=== PATIENT | female | born 1950 | race African-American/Black ===

== ENCOUNTER → 2017-05-30 | Outpatient (CLI) | payer MEDICARE, OTHER ==
--- NOTE | 2017-05-30 12:02 | RADIOLOGY REPORT (SQ) ---
EXAM DESCRIPTION: KNEE RIGHT 4 VIEWS COMPLETED DATE/TIME: 05/30/2017 11:20 am REASON FOR STUDY: PAIN IN RIGHT KNEE M25.561 PAIN IN RIGHT KNEE COMPARISON: None. NUMBER OF VIEWS: Four views. TECHNIQUE: AP, lateral, and both oblique radiographic images acquired of the right knee. LIMITATIONS: None. FINDINGS: MINERALIZATION: Normal. BONES: No acute fracture or dislocation. No worrisome bone lesions. JOINT: There is a small joint effusion. There is a tiny posterior superior spur on the patella. SOFT TISSUES: No soft tissue swelling. No radio-opaque foreign body. OTHER: No other significant finding. IMPRESSION: Minimal patellofemoral degenerative joint changes. There is a small joint effusion. TECHNICAL DOCUMENTATION: JOB ID: [id number] [employer]- All Rights Reserved
== END ==
LOC: OD 10:56
PROVIDERS: ATTEND Internal Medicine
DX: M25.561 Pain in right knee (principal); M25.461 Effusion, right knee

== ENCOUNTER 2018-03-29 21:30 | Emergency (ER) | payer MEDICARE, OTHER ==
[2018-03-29] MEDS ORDERED: ACETAMINOPHEN 325 MG TABLET PO ONE (22:08)
--- NOTE | 2018-03-29 23:09 | RADIOLOGY REPORT (SQ) ---
EXAM DESCRIPTION: FOOT LEFT COMPLETE COMPLETED DATE/TIME: 03/29/2018 10:53 pm REASON FOR STUDY: swelling and pain COMPARISON: None. NUMBER OF VIEWS: Three views. TECHNIQUE: AP, lateral and oblique radiographic images acquired of the left foot. LIMITATIONS: None. FINDINGS: MINERALIZATION: Normal. BONES: No acute fracture or dislocation. No worrisome bone lesions. JOINTS: No effusions. SOFT TISSUES: No significant soft tissue swelling. No foreign body. OTHER: No other significant finding. IMPRESSION: No fracture. TECHNICAL DOCUMENTATION: JOB ID: [id number] [place]-72 2010 [employer]- All Rights Reserved Reading location - IP/workstation name: [email or web address]
--- NOTE | 2018-03-29 23:11 | RADIOLOGY REPORT (SQ) ---
EXAM DESCRIPTION: ANKLE LEFT COMPLETE COMPLETED DATE/TIME: 03/29/2018 10:53 pm REASON FOR STUDY: swelling and pain COMPARISON: None. NUMBER OF VIEWS: Three views. TECHNIQUE: AP, lateral, and oblique radiographic images acquired of the left ankle. LIMITATIONS: None. FINDINGS: MINERALIZATION: Normal. BONES: No acute fracture or dislocation. No worrisome bone lesions. JOINTS: No effusions. SOFT TISSUES: No soft tissue swelling. No foreign body. OTHER: No other significant finding. IMPRESSION: NO RADIOGRAPHIC EVIDENCE OF ACUTE INJURY. TECHNICAL DOCUMENTATION: JOB ID: [id number] [id number] 2010 [employer]- All Rights Reserved Reading location - IP/workstation name: [email or web address]
[2018-03-30] MEDS ORDERED: OXYCODONE HCL IR 5 MG TABLET PO ONE (01:27)
[2018-03-30] MEDS ORDERED: IBUPROFEN 600 MG TABLET PO ONE (01:27)
--- NOTE | 2018-03-30 01:33 | ER Document Report ---
ED Extremity Problem, Lower - General Chief Complaint: Foot Injury Stated Complaint: ANKLE INJURY Time Seen by Provider: 03/30/18 01:16 Mode of Arrival: Ambulatory Information source: Patient TRAVEL OUTSIDE OF THE [place] IN LAST 30 DAYS: No - HPI Patient complains to provider of: Pain, Swelling Location: Foot Notes: Patient is here with complaints of left foot pain. The patient has a history of gout, she states it has been about 3 years since she has had a gout flareup. Last week she states she had a "gout flareup "to left foot seem to get somewhat better and then today it seemed to get worse. No fever. No traumatic injury. No fall. No numbness, tingling, weakness. No nausea, vomiting, diarrhea. No chest pain or shortness of breath. No rash. No other complaints at this time. - Related Data Allergies/Adverse Reactions: iodine [Iodine] Adverse Reaction (Mild, Verified 02/24/16 09:29) Generalized Itching, Blisters, redness at site Past Medical History - Social History Smoking Status: Unknown if Ever Smoked Family History: Reviewed & Not Pertinent - Past Medical History Cardiac Medical History: Reports: Hx Hypertension Denies: Hx Coronary Artery Disease, Hx Heart Attack Pulmonary Medical History: Reports: Hx Asthma - USES INHALER PRN, no sob Denies: Hx Bronchitis, Hx COPD, Hx Pneumonia Neurological Medical History: Denies: Hx Cerebrovascular Accident, Hx Seizures GI Medical History: Denies: Hx Hepatitis, Hx Hiatal Hernia, Hx Ulcer Musculoskeltal Medical History: Denies Hx Arthritis Infectious Medical History: Denies: Hx Hepatitis Past Surgical History: Reports: Hx Section, Hx Hysterectomy, Hx Orthopedic Surgery - carpal tunnel. Denies: Hx Mastectomy, Hx Open Heart Surgery, Hx Pacemaker - Immunizations Hx Diphtheria, Pertussis, Tetanus Vaccination: No Review of Systems - Review of Systems -: Yes All other systems reviewed and negative Physical Exam - Vital signs Vitals: Temp Pulse Resp BP Pulse Ox 99.3 F 80 20 116/72 96 03/29/18 22:37 03/29/18 22:37 03/29/18 22:37 03/29/18 22:37 03/29/18 22:37 - Notes Notes: GENERAL: alert, cooperative, nontoxic, no distress. HEAD: normocephalic, atraumatic EYES: conjunctiva pink without discharge, no external redness or swelling. EARS: no external swelling, no external redness NOSE: atraumatic, no external swelling MOUTH/THROAT: mucous membranes moist and pink NECK: soft, supple, full range of motion, no meningismus. CHEST: no distress, lungs clear and equal throughout. No wheezing, rales, rhonchi. CARDIAC: regular rate and rhythm, no murmur, normal capillary refill, normal pulses. BACK: full range of motion, no CVA tenderness. EXTREMITIES: Patient is noted to have some swelling and tenderness at the first MTP joint with some mild redness and slight increased warmth to touch. This is consistent with gout. Normal cap refill and sensation. Normal pulse. Mild tenderness to palpation to the left medial ankle as well. There is mild swelling noted in this area, no significant redness or hot to touch. Achilles is intact with a normal Barron's test. No proximal tib-fib tenderness. NEURO: alert and oriented 3, no focal deficits, full range of motion of all extremities. PYSCH: appropriate mood, affect. Patient is cooperative. SKIN: pink, warm, dry, no rash. Course - Re-evaluation Re-evalutation: 03/30/18 01:32 Patient is nontoxic appearing with stable vitals. She is here with complaints of left foot pain. She has a history of gout. She states that she had a gout flareup earlier in the week and then things seem to get better until today. She now has pain swelling and redness to the first MTP joint of the left foot as well as the medial ankle. This exam is consistent with gout. Especially with her history of gout. She is afebrile. No signs of infection. Patient states she has normal functioning kidneys. No history of bleeding ulcers. X- rays of the left foot and ankle show no acute abnormal per the radiologist. Patient will be given ibuprofen and oxycodone here in emergency department. I will discharge her home on indomethacin as well as Calera. She is instructed to follow-up if not improving in the next 3-5 days, sooner for increasing pain, fever, increasing redness, or for any further concerns. The patient's emergency department workup and current diagnosis were explained to the patient and or family. Follow-up instructions were provided. Medications if prescribed were discussed. Instructions for when to return to the emergency department including specific worrisome symptoms were discussed with the patient and/or family. - Vital Signs Vital signs: Temp Pulse Resp BP Pulse Ox 99.3 F 80 20 116/72 96 03/29/18 22:37 03/29/18 22:37 03/29/18 22:37 03/29/18 22:37 03/29/18 22:37 - Diagnostic Test Radiology reviewed: Image reviewed - Left foot and ankle negative, Reports reviewed Discharge - Discharge Clinical Impression: Gout Qualifiers: Gout site: foot Gout etiology: unspecified cause Chronicity: acute Laterality: left Qualified Code(s): M10.9 - Gout, unspecified Condition: Stable Disposition: HOME, SELF-CARE Instructions: Gout ([facility]), Gout Diet ([facility]) Additional Instructions: Take medications as prescribed. Apply ice to sore area. Follow-up with your doctor if not improving in the next 3-5 days, sooner for worsening pain, fever, worsening redness, persistent vomiting, or for any further concerns. Prescriptions: Hydrocodone/Acetaminophen [Calera 5-325 mg Tablet] 2 tab PO Q6H PRN #15 tab PRN Reason: Indomethacin [Indocin 50 mg Capsule] 50 mg PO TID PRN #30 capsule PRN Reason: Referrals: [facility] [Provider Group] - Follow up as needed
[2018-03-30 02:27] VITALS: BP 136/65
== END 2018-03-30 02:18 | disposition home or self-care (01) ==
LOC: ER 21:30
DX: M10.9 Gout, unspecified (principal); M79.672 Pain in left foot; M79.89 Other specified soft tissue disorders; I10 Essential (primary) hypertension; J45.909 Unspecified asthma, uncomplicated
CPT/HCPCS: 99283; 73610; 73630; A9270 ×3

== ENCOUNTER → 2018-06-06 | Outpatient (CLI) | payer MEDICARE, OTHER ==
--- NOTE | 2018-06-07 09:25 | RADIOLOGY REPORT (SQ) ---
EXAM DESCRIPTION: NM THYROID SCAN AND UPTAKE COMPLETED DATE/TIME: 06/07/2018 9:14 am REASON FOR STUDY: THYROTOXICOSIS (E05.90) E05.90 THYROTOXICOSIS, UNSP WITHOUT THYROTOXIC CRISIS OR STO COMPARISON: None. RADIONUCLIDE AND DOSE: 299 microcuries iodine 123. The route of agent administration: Oral and Intravenous ADDITIONAL DRUGS AND DOSES: None. TECHNIQUE: Iodine uptake was measured at 4 and 24 hours. Images of the neck were acquired. LIMITATIONS: None. FINDINGS: 4 HOUR UPTAKE RADIO-IODINE: 14%. Normal Range of 5-15% [facility] 24 HOUR UPTAKE RADIO-IODINE: 39%. Normal Range of 15-30% [facility] SCAN: Homogeneous uptake of the radionuclide throughout both lobes of the gland and isthmus without a reas of increased or decreased activity. Normal size. OTHER: No other significant finding. IMPRESSION: Increased uptake of iodine at 24 hours. No hyperfunctioning thyroid nodule is identified. NORMAL UPTAKE OF IODINE. TECHNICAL DOCUMENTATION: JOB ID: [id number] [employer]- All Rights Reserved Reading location - IP/workstation name: [email or web address]
== END ==
LOC: RAD 08:38
PROVIDERS: ATTEND Internal Medicine
DX: E05.90 Thyrotoxicosis, unspecified without thyrotoxic crisis or storm (principal)
CPT/HCPCS: 78014; A9516

== ENCOUNTER → 2018-12-25 | Outpatient (CLI) | payer MEDICARE, OTHER ==
--- NOTE | 2018-12-25 10:35 | WOMENS IMAGING REPORT ---
EXAM DESCRIPTION: 3D SCREENING MAMMO BILAT COMPLETED DATE/TIME: 12/25/2018 8:01 am REASON FOR STUDY: Z12.31 SCREENING MAMMO Z12.31 ENCNTR SCREEN MAMMOGRAM FOR MALIGNANT NEOPLASM OF B RE COMPARISON: 2010, 2011, 2013 TECHNIQUE: Standard craniocaudal and mediolateral oblique views of each breast recorded using digita l acquisition and breast tomosynthesis. LIMITATIONS: None. FINDINGS: No masses, calcifications or architectural distortion. No areas of suspicion. Read with the assistance of CAD. .[facility] R2 Cenova Version 1.3 .[facility] - R2 Cenova Version 1.3 .[facility] - R2 Cenova Version 2.4 .[facility] - R2 Cenova Version 2.4 .[facility] - R2 Bill Collector Version 9.2 IMPRESSION: NORMAL MAMMOGRAM. BIRADS 1. BREAST DENSITY: b. There are scattered areas of fibroglandular density. BIRAD: 1 NEGATIVE RECOMMENDATION: ROUTINE SCREENING COMMENT: The patient has been notified of the results by letter per SA requirements. Additional no tification policies are in place for contacting patient with suspicious or incomplete findings. Quality ID #[id number]: The [employer] recommends an annual screening mammogram for women aged 40 years or over. This facility utilizes a reminder system to ensure that all patients receive reminder letters, and/or direct phone calls for appointments. This includes reminders for routine scr eening mammograms, diagnostic mammograms, or other Breast Imaging Interventions when appropriate. Th is patient will be placed in the appropriate reminder system. The [employer] (ACR) has developed recommendations for screening MRI of the breast s in certain patient populations, to be used in conjunction with mammography. Breast MRI surveillanc e may be appropriate for women with more than 20% lifetime risk of developing breast cancer as deter mined by genetic testing, significant family history of the disease, or history of mantle radiation f or Hodgkins Disease. ACR Practice Guidelines 2008. DBT Technology DBT is a type of tomographic mammography. With conventional mammography, overlapping breast tissue ma y make lesions difficult to detect, even with good compression. DBT uses an x-ray tube that rotates a round the breast, taking images at different angles. These images are then combined to create thin sl ices of the breast that the radiologist can view as a 3D reconstruction. The [employer] unit can perform full-field digital mammograms (2D imaging); or DBT (3D imaging); or both, in a combination mode that quickly performs both the mammogram and the tomosynthesis scan while the breast is still compressed. PQRS 6045F: Fluoroscopic imaging is not utilized for breast tomosynthesis. TECHNICAL DOCUMENTATION: FINDING NUMBER: (1) ASSESSMENT: (1) JOB ID: [id number] [employer])- All Rights Reserved Reading location - IP/workstation name: [email or web address]-
== END ==
LOC: WI 07:35
PROVIDERS: ATTEND Internal Medicine
DX: Z12.31 Encounter for screening mammogram for malignant neoplasm of breast (principal)
CPT/HCPCS: 77063; 77067

== ENCOUNTER 2020-05-13 22:09 | Emergency (ER) | payer MEDICARE, OTHER ==
[2020-05-13] MEDS ORDERED: ACETAMINOPHEN 325 MG TABLET PO ONE (22:54)
--- NOTE | 2020-05-13 23:00 | ER Document Report ---
ED General - General Chief Complaint: Abdominal Pain Stated Complaint: ABDOMINAL PAIN Time Seen by Provider: 05/13/20 22:28 Primary Care Provider: ELOY ENNIS MD [Primary Care Provider] - Follow up as needed Notes: 69-year-old female with history of hypertension presenting today with abdominal pain since May 01. States that the pain is more in the left lower quadrant, described as a squeezing sensation. Constant. Patient cannot find a comfortable position. She was seen by her primary care and was prescribed Cipro and Flagyl. Patient reports that this medications did help alleviate the pain but the symptoms came back 3 days later. She went back to them and they continued her on the treatment. Patient saw GI today. A CT scan was ordered for her. She states that the CT scan showed no abnormal findings. She notes that her urine is different. She does not state that she has pain. She notes a different odor to it. Denies any vaginal discharge or vaginal bleeding. States that her last bowel movement was this morning and it was hard and small. States that yesterday it was more mushy. She denies any fevers, chills, chest pain, shortness of breath, bloating or nausea and vomiting. She has not taken her blood pressure medication tonight. TRAVEL OUTSIDE OF THE [place] IN LAST 30 DAYS: No - Related Data Allergies/Adverse Reactions: iodine [Iodine] Adverse Reaction (Mild, Verified 02/24/16 09:29) Generalized Itching, Blisters, redness at site Past Medical History - Social History Smoking Status: Never Smoker Frequency of alcohol use: Social Drug Abuse: None Family History: Reviewed & Not Pertinent Patient has homicidal ideation: No - Past Medical History Cardiac Medical History: Reports: Hx Hypertension Denies: Hx Coronary Artery Disease, Hx Heart Attack Pulmonary Medical History: Reports: Hx Asthma - USES INHALER PRN, no sob Denies: Hx Bronchitis, Hx COPD, Hx Pneumonia Neurological Medical History: Denies: Hx Cerebrovascular Accident, Hx Seizures Renal/ Medical History: Denies: Hx Peritoneal Dialysis GI Medical History: Denies: Hx Hepatitis, Hx Hiatal Hernia, Hx Ulcer Musculoskeletal Medical History: Denies Hx Arthritis Infectious Medical History: Denies: Hx Hepatitis Past Surgical History: Reports: Hx Section, Hx Hysterectomy, Hx Orthopedic Surgery - carpal tunnel. Denies: Hx Mastectomy, Hx Open Heart Surgery, Hx Pacemaker - Immunizations Hx Diphtheria, Pertussis, Tetanus Vaccination: No Review of Systems - Review of Systems Constitutional: See HPI EENT: No symptoms reported Cardiovascular: No symptoms reported Respiratory: See HPI Gastrointestinal: See HPI Genitourinary: See HPI Musculoskeletal: See HPI Physical Exam - Vital signs Vitals: Resp Pulse Ox 15 100 05/13/20 22:15 05/13/20 22:15 Interpretation: Hypertensive - Notes Notes: Adult General: GENERAL: Alert, interacts well. Unable to find comfortable position in bed HEAD: Normocephalic, atraumatic EYES: Extraocular movements intact. ENT: Airway patent. Nares patent. NECK: Full range of motion. Supple. Trachea midline. No lymphadenopathy. LUNGS: Clear to auscultation bilaterally, no wheezes, rales, or rhonchi. No respiratory distress. Nontender chest wall. HEART: Regular rate and rhythm. No murmurs, rubs or gallops. ABDOMEN: Soft, tender on right upper and lower quadrant. Nondistended. No rebound or guarding. Scar midline inferior to umbilicus. (-) Ada sign. Bowel sounds present in all 4 quadrants. GENITOURINARY: Deferred EXTREMITIES: Moves all 4 extremities spontaneously. No cyanosis. BACK: No cervical, thoracic, lumbar midline tenderness. No saddle anesthesia, normal distal neurovascular exam. Moves all extremities with full range of motion. NEUROLOGICAL: Alert and oriented x3. Normal speech. Strength 5/ 5 in all extremities. PSYCH: Normal affect, normal mood. SKIN: Warm, dry, normal turgor. No rashes or lesions noted. Course - Re-evaluation Re-evalutation: 05/14/20 01:10 Tylenol provided minimal relief in pain. Additional pain medication was ordered. Patient reports she feels like an shazia and her pain has drastically decreased. CT scan from earlier today was reviewed. Shows diverticulosis, no diverticulitis. Constipation greater on the right side. Patients cbc and cmp are unremarkable. Urinalysis shows trace leukocyte esterase- patient continues to deny pain with urination. Based on ct scan and labs, suspect patients abdominal pain is due to constipation. She has a large collection of stool in the rectum. Discussed digital disimpaction as concern that enema won't be effective due to stool burden. Patient agrees to disimpaction. Unable to digitally disimpact patient. This was chaperoned by nurse Caldwell. Enema was ordered for patient. After completion of enema, patient reports that she feels better and desires to go home. Discussed with patient the need to follow up with her primary care provider and GI provider. Return precautions to the emergency department include worsening symptoms or development of new symptoms. Patient acknowledges and verbalizes understanding of instructions. - Vital Signs Vital signs: Temp Pulse Resp BP Pulse Ox 98.6 F 12 163/73 H 100 05/13/20 22:25 05/14/20 04:01 05/14/20 04:01 05/14/20 04:01 - Laboratory Result Diagrams: 05/13/20 22:22 05/13/20 22:22 Laboratory results interpreted by me: 05/13/20 05/13/20 05/13/20 22:22 22:22 23:23 RDW 14.5 H Sodium 135.5 L Urine Ketones TRACE H Ur Leukocyte Esterase SMALL H Discharge - Discharge Clinical Impression: Constipation Qualifiers: Constipation type: unspecified constipation type Qualified Code(s): K59.00 - Constipation, unspecified Abdominal pain Qualifiers: Abdominal location: right lower quadrant Qualified Code(s): R10.31 - Right lower quadrant pain Condition: Stable Disposition: HOME, SELF-CARE Instructions: Abdominal Pain ([facility]) Additional Instructions: Please follow-up with your primary care provider soon as possible. Return to the emergency department if you have worsening symptoms or development of new symptoms. Continue taking antibiotics as prescribed per your primary care. You may take Tylenol if you develop pain again. Referrals: ELOY ENNIS MD [Primary Care Provider] - Follow up as needed
[2020-05-13] MEDS ORDERED: NORMAL SALINE 1000 ML 1,000 ML IV ONE (23:03)
[2020-05-13] MEDS ORDERED: ONDANSETRON 4 MG TAB.RAPDIS PO ONE (23:03)
[2020-05-13 23:07] LABS: ABSOLUTE LYMPHOCYTES (AUTO) 1.6 10^3/uL (0.5-4.7); ABSOLUTE MONOCYTES (AUTO) 0.3 10^3/uL (0.1-1.4); BASOPHILS % (AUTO) 0.1 % (0-2); HEMOGLOBIN 12.2 g/dL (12.0-15.5); TOTAL CELLS COUNTED % (AUTO) 100 %
[2020-05-13 23:14] LABS: ABSOLUTE NEUT (AUTO) 4.9 10^3/uL (1.7-8.2); HEMATOCRIT 36.3 % (36.0-47.0); LYMPHOCYTES % (AUTO) 23.9 % (13-45); MEAN CORPUSCULAR HGB CONC 33.5 g/dL (32.0-36.0); MEAN CORPUSCULAR VOLUME 84 fl (80-97); MONOCYTES % (AUTO) 4.8 % (3-13); PLATELET COUNT 289 10^3/uL (150-450); RED BLOOD COUNT 4.35 10^6/uL (3.72-5.28); RED CELL DISTRIBUTION WIDTH 14.5 % (11.5-14.0); SEGMENTED NEUTROPHILS % (AUTO) 71.2 % (42-78); WHITE BLOOD COUNT 6.9 10^3/uL (4.0-10.5)
[2020-05-13 23:15] LABS: ALBUMIN 4.3 g/dL (3.5-5.0); ALKALINE PHOSPHATASE 76 U/L (38-126); ANION GAP 8 (5-19); ASPARTATE AMINO TRANSFERASE 23 U/L (14-36); BILIRUBIN,TOTAL 0.4 mg/dL (0.2-1.3); BLOOD UREA NITROGEN 12 mg/dL (7-20); CALCIUM 9.9 mg/dL (8.4-10.2); CARBON DIOXIDE 29 mmol/L (22-30); CHLORIDE 99 mmol/L (98-107); GLUCOSE 95 mg/dL (75-110); TOTAL PROTEIN 6.9 g/dL (6.3-8.2)
[2020-05-13 23:40] LABS: APPEARANCE,URINE CLEAR; BILIRUBIN,URINE NEGATIVE (NEGATIVE); COLOR,URINE YELLOW; GLUCOSE, URINE NEGATIVE (NEGATIVE); KETONES,URINE TRACE mg/dL (NEGATIVE); LEUKOCYTE ESTERASE,URINE SMALL (NEGATIVE); NITRITE,URINE NEGATIVE (NEGATIVE); PROTEIN,URINE NEGATIVE (NEGATIVE); URINE SPECIFIC GRAVITY 1.049; UROBILINOGEN,URINE NEGATIVE mg/dL (<2.0)
[2020-05-14] MEDS ORDERED: MORPHINE SULFATE 10 MG/ML INJ IV ONE (00:20)
[2020-05-14] MEDS ORDERED: LIDOCAINE 2% URO-JET 5 ML KIT MM ONE (00:44)
[2020-05-14] MEDS ORDERED: MINERAL OIL 30 ML UDCUP PR ONE (01:11)
[2020-05-14 04:39] VITALS: BP 163/73
== END 2020-05-14 04:39 | disposition home or self-care (01) ==
LOC: ER 22:09
DX: K59.00 Constipation, unspecified (principal); K57.90 Diverticulosis of intestine, part unspecified, without perforation or abscess without bleeding; I10 Essential (primary) hypertension; Z79.899 Other long term (current) drug therapy; J45.909 Unspecified asthma, uncomplicated
CPT/HCPCS: 99284; 96361; 96374; 36415; 83690; 87070; 81001; A9270 ×4; J2270; J7030; J3490; S0119

== ENCOUNTER → 2020-05-13 | Outpatient (CLI) | payer MEDICARE, OTHER ==
[2020-05-13 17:19] LABS: ABSOLUTE LYMPHOCYTES (AUTO) 0.6 10^3/uL (0.5-4.7); ABSOLUTE MONOCYTES (AUTO) 0.1 10^3/uL (0.1-1.4); ABSOLUTE NEUT (AUTO) 6.1 10^3/uL (1.7-8.2); BASOPHILS % (AUTO) 0.1 % (0-2); HEMOGLOBIN 12.3 g/dL (12.0-15.5); LYMPHOCYTES % (AUTO) 9.3 % (13-45); MEAN CORPUSCULAR HEMOGLOBIN 27.7 pg (27.0-33.4); MEAN CORPUSCULAR HGB CONC 33.3 g/dL (32.0-36.0); MEAN CORPUSCULAR VOLUME 83 fl (80-97); MONOCYTES % (AUTO) 1.7 % (3-13); PLATELET COUNT 271 10^3/uL (150-450); RED BLOOD COUNT 4.43 10^6/uL (3.72-5.28); RED CELL DISTRIBUTION WIDTH 14.9 % (11.5-14.0); SEGMENTED NEUTROPHILS % (AUTO) 88.9 % (42-78); TOTAL CELLS COUNTED % (AUTO) 100 %; WHITE BLOOD COUNT 6.9 10^3/uL (4.0-10.5)
[2020-05-13 17:48] LABS: ALBUMIN 4.4 g/dL (3.5-5.0); ALKALINE PHOSPHATASE 77 U/L (38-126); ANION GAP 9 (5-19); ASPARTATE AMINO TRANSFERASE 24 U/L (14-36); BILIRUBIN,TOTAL 0.4 mg/dL (0.2-1.3); BLOOD UREA NITROGEN 12 mg/dL (7-20); CALCIUM 9.8 mg/dL (8.4-10.2); CARBON DIOXIDE 27 mmol/L (22-30); CHLORIDE 100 mmol/L (98-107); GLUCOSE 133 mg/dL (75-110); POTASSIUM 4.1 mmol/L (3.6-5.0); TOTAL PROTEIN 7.1 g/dL (6.3-8.2)
--- NOTE | 2020-05-13 19:19 | RADIOLOGY REPORT (SQ) ---
EXAM DESCRIPTION: CT ABD/PELVIS WITH IV ORAL IMAGES COMPLETED DATE/TIME: 05/13/2020 6:57 pm REASON FOR STUDY: R10.814 LEFT LOWER QUADRANT ABDOMINAL TENDERNESS R10.814 LEFT LOWER QUADRANT ABDO SATYA TENDERNESS K57.30 DVRTCLOS OF LG INT W/O PERFORATION OR ABSCESS W/O BLE COMPARISON: None. TECHNIQUE: CT scan of the abdomen and pelvis performed using helical scanning technique with dynamic intravenous contrast injection. No oral contrast. Images reviewed with lung, soft tissue, and bone windows. Reconstructed coronal and sagittal MPR images reviewed. Delayed images for evaluation of the urinary system also acquired. All images stored on PACS. All CT scanners at this facility use dose modulation, iterative reconstruction, and/or weight based d osing when appropriate to reduce radiation dose to as low as reasonably achievable (ALARA). [facility]: Dose Right [facility]: CareDose [facility]: Dose Right [facility]: Teradose 4D [facility]: Tribogenics CONTRAST TYPE AND DOSE: 83 ml Omnipaque 350 RENAL FUNCTION: Creatinine - 0.66 BUN=12 RADIATION DOSE: CT Rad equipment meets quality standard of care and radiation dose reduction techniq ues were employed. CTDIvol: 10.0 - 10.1 mGy. DLP: 1051 mGy-cm.. LIMITATIONS: None. FINDINGS: LOWER CHEST: Small pleural based 2-3 mm left lower lobe nodule, axial image 15, series 4. LIVER: Normal size. No masses. No dilated ducts. The hepatic and portal veins are patent. SPLEEN: Small calcified granuloma in the spleen probably secondary to prior granulomatous disease. PANCREAS: No masses. No significant calcifications. No adjacent inflammation or peripancreatic fluid collections. Pancreatic duct not dilated. GALLBLADDER: No identified stones by CT criteria. No inflammatory changes to suggest cholecystitis. ADRENAL GLANDS: No significant masses or asymmetry. RIGHT KIDNEY AND URETER: No solid masses. No significant calcifications. No hydronephrosis or hyd roureter. LEFT KIDNEY AND URETER: Extrarenal pelvis on the left, normal anatomic variant. No solid masses. No significant calcifications. No hydronephrosis or hydroureter. AORTA AND VESSELS: No aneurysm. No dissection. Renal arteries, SMA, celiac without stenosis. RETROPERITONEUM: No retroperitoneal adenopathy, hemorrhage or masses. BOWEL AND PERITONEAL CAVITY: Colonic diverticulae without evidence of diverticulitis. Constipation, more so on the right. No free fluid. APPENDIX: Not visualized. PELVIS: Prior hysterectomy. No free fluid. Normal bladder. ABDOMINAL WALL: No masses. No hernias. BONES: No significant or acute findings. OTHER: Hiatal hernia. A well-defined 3.2 cm left paraspinal lipoma at about the T11 level. IMPRESSION: 1. Colonic diverticulosis without evidence of diverticulitis. 2. Constipation, more so on the right. 3. Additional findings as above. TECHNICAL DOCUMENTATION: JOB ID: [id number] Quality ID # [id number]: Final reports with documentation of one or more dose reduction techniques (e.g., Au tomated exposure control, adjustment of the mA and/or kV according to patient size, use of iterative reconstruction technique) 2010 [employer]- All Rights Reserved Reading location - IP/workstation name: [email or web address]
== END ==
LOC: RAD 16:44
PROVIDERS: ATTEND Internal Medicine Gastroenterology
DX: R10.814 Left lower quadrant abdominal tenderness (principal); K57.30 Diverticulosis of large intestine without perforation or abscess without bleeding; R10.32 Left lower quadrant pain
CPT/HCPCS: 36415; 74177; 80053; 85025

== ENCOUNTER → 2020-05-15 | Outpatient (CLI) | payer MEDICARE, OTHER ==
--- NOTE | 2020-05-15 14:47 | RADIOLOGY REPORT (SQ) ---
EXAM DESCRIPTION: HIP LEFT AP/LATERAL IMAGES COMPLETED DATE/TIME: 05/15/2020 2:31 pm REASON FOR STUDY: LOW BACK PAIN; SACROILIITIS; RT HIP PAIN M54.5 LOW BACK PAIN M46.1 SACROILIITIS, NOT ELSEWHERE CLASSIFIED M25.551 PAIN IN RIGHT HIP COMPARISON: 2010 NUMBER OF VIEWS: Two views. TECHNIQUE: AP pelvis and additional frog-leg view of the left hip. LIMITATIONS: None. FINDINGS: MINERALIZATION: Normal. LEFT HIP: No fracture or dislocation. No worrisome bone lesions. RIGHT HIP: No fracture or dislocation. No worrisome bone lesions. PUBIS AND ISCHIUM: No fracture. PELVIS: No fracture. SACRUM: No fracture or dislocation. No worrisome bone lesions. LOWER LUMBAR SPINE: No fracture or dislocation. No worrisome bone lesions. No significant disc disea se. SOFT TISSUES: No findings. OTHER: No other significant finding. IMPRESSION: NEGATIVE STUDY OF THE LEFT HIP AND PELVIS. NO RADIOGRAPHIC EVIDENCE OF ACUTE INJURY. TECHNICAL DOCUMENTATION: JOB ID: [id number] 2010 [employer]- All Rights Reserved Reading location - IP/workstation name: [email or web address]
--- NOTE | 2020-05-15 14:49 | RADIOLOGY REPORT (SQ) ---
EXAM DESCRIPTION: LUMBAR SPINE 2 VIEWS IMAGES COMPLETED DATE/TIME: 05/15/2020 2:31 pm REASON FOR STUDY: LOW BACK PAIN; SACROILIITIS; RT HIP PAIN M54.5 LOW BACK PAIN M46.1 SACROILIITIS, NOT ELSEWHERE CLASSIFIED M25.551 PAIN IN RIGHT HIP COMPARISON: None. NUMBER OF VIEWS: Two views. TECHNIQUE: AP and lateral radiographic images acquired of the lumbar spine. LIMITATIONS: None. FINDINGS: MINERALIZATION: Normal. SEGMENTATION: There appears to be a transitional vertebra at S1 ALIGNMENT: Normal. VERTEBRAE: Maintained height. No fracture or worrisome bone lesion. DISCS: Preserved height. No significant osteophytes or end plate irregularity. POSTERIOR ELEMENTS: Pedicles and facets are intact. No pars defect or posterior arch defects. HARDWARE: None in the spine. PARASPINAL SOFT TISSUES: Normal. PELVIS: Intact as visualized. No fractures or worrisome bone lesions. SI joints intact. OTHER: No other significant finding. 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 TECHNICAL DOCUMENTATION: JOB ID: [id number] 2010 [employer]- All Rights Reserved Reading location - IP/workstation name: [email or web address]
--- NOTE | 2020-05-15 14:50 | RADIOLOGY REPORT (SQ) ---
EXAM DESCRIPTION: SACROILIAC JOINTS IMAGES COMPLETED DATE/TIME: 05/15/2020 2:31 pm REASON FOR STUDY: LOW BACK PAIN; SACROILIITIS; RT HIP PAIN M54.5 LOW BACK PAIN M46.1 SACROILIITIS, NOT ELSEWHERE CLASSIFIED M25.551 PAIN IN RIGHT HIP COMPARISON: None. NUMBER OF VIEWS: Three views. TECHNIQUE: AP and oblique views of the sacroiliac joints. LIMITATIONS: None. FINDINGS: MINERALIZATION: Normal. BONES: It appears that S1 and represents a transitional vertebra. No significant osteophytes. JOINTS: The sacroiliac joints are patent. No unusual widening, sclerosis, or fusion. SOFT TISSUES: No soft tissue swelling. No radio-opaque foreign body. OTHER: No other significant finding. IMPRESSION: There appears to be a transitional vertebra at S1. The SI joints are normal. TECHNICAL DOCUMENTATION: JOB ID: [id number] 2010 [employer]- All Rights Reserved Reading location - IP/workstation name: [email or web address]
== END ==
LOC: OD 13:17
PROVIDERS: ATTEND Internal Medicine
DX: M54.5 Low back pain (principal); M46.1 Sacroiliitis, not elsewhere classified; M25.551 Pain in right hip
CPT/HCPCS: 72100; 72200

== ENCOUNTER → 2020-05-16 | Outpatient (CLI) | payer MEDICARE, OTHER ==
--- NOTE | 2020-05-16 12:55 | RADIOLOGY REPORT (SQ) ---
EXAM DESCRIPTION: MRILLJ WO IMAGES COMPLETED DATE/TIME: 05/16/2020 11:31 am REASON FOR STUDY: (M25.552)PAIN IN LEFT HIP COMPARISON: Recent radiographs. TECHNIQUE: Noncontrast multiplanar MR imaging. Sequences include wide field of view pelvis and focu sed hip of interest. Fat sensitive, water sensitive, and cartilage sensitive sequences. Specific hip of interest: Left LIMITATIONS: None. FINDINGS: MARROW SIGNAL: Normal, no evidence of replacement, occult fracture or suspicious bone lesi on in the visualized lumbar spine, pelvis and proximal femurs. SPECIFIC HIP OF INTEREST: No effusion, AVN or fracture. No significant bursitis, regional mass or e driss. OPPOSITE HIP: Normal. No effusion or other significant finding on limited sequences. REMAINDER OF THE OSSEOUS PELVIS: Minimal areas of edema along the SI joints, likely degenerative. No large erosions or suggestion of ankylosis. No pelvic bone fracture or worrisome bone lesion. INTRA- AND EXTRAPELVIC SOFT TISSUES: No intrapelvic mass or free fluid. Bladder normal. No extrapelv ic mass. No inguinal hernia or adenopathy. OTHER: Mild multilevel lower lumbar disc space narrowing. IMPRESSION: No worrisome left hip findings. No fracture or AVN. No effusion or bursitis. Reading location - IP/workstation name: [email or web address]
== END ==
LOC: RAD 10:11
PROVIDERS: ATTEND Internal Medicine
DX: M25.552 Pain in left hip (principal)

== ENCOUNTER → 2020-05-19 | Outpatient (CLI) | payer MEDICARE ==
--- NOTE | 2020-05-19 14:17 | RADIOLOGY REPORT (SQ) ---
EXAM DESCRIPTION: MRI LUMBAR SPINE WITHOUT IMAGES COMPLETED DATE/TIME: 05/19/2020 1:18 pm REASON FOR STUDY: M54.16 RADICULOPATHY, LUMBAR REGION M54.16 RADICULOPATHY, LUMBAR REGION COMPARISON: CT of the abdomen and pelvis with contrast from 05/13/2020. TECHNIQUE: Sagittal and Axial imaging includes T1, T2, STIR and gradient echo sequences. Coronal T2/ HASTE imaging. LIMITATIONS: None. FINDINGS: VISUALIZED UPPER ABDOMEN: No abnormality. SEGMENTATION: For the purposes of enumeration the 12th ribs are consider hypoplastic and there is a t ransitional L5 segment at the lumbosacral junction. ALIGNMENT: Grade 1 anterolisthesis of L4 relative to L5. VERTEBRAE: Intact. BONE MARROW: Normal. DISC SIGNAL: The L2-L3, L3-L4 and L4-L5 intervertebral disc spaces are desiccated. POSTERIOR ELEMENTS: Intact. HARDWARE: None in the spine. CORD AND CONUS: The conus medullaris terminates at the level of T12-L1 and it is normal in caliber an d signal intensity. SOFT TISSUES: No abnormality. L1-L2: Left paramedian disc protrusion with cephalad migration that exerts mass effect upon the intra foraminal left L1 nerve root and left intrathecal L2 nerve root in the lateral recess. L2-L3: No spinal or foraminal stenosis. L3-L4: Broad-based disc bulge that indents the ventral aspect of the thecal sac and encroaches upon t he inferior aspect of the neuroforamina without mass effect upon the nerve roots; hypertrophy of the ligamentum flavum ; and degeneration of the facet joints. These findings result in mild compression a nd no foraminal stenosis. L4-L5: Broad-based disc bulge that flattens the ventral aspect of the thecal sac and encroaches upon the inferior aspect of the neuroforamina without mass effect upon the nerve roots; hypertrophy of the ligamentum flavum ; and degeneration of the facet joints. These findings result in moderate [place] of the thecal sac and mild bilateral foraminal stenosis. L5-S1: Degeneration of the facet joints without spinal or foraminal stenosis. LOWER THORACIC: No stenosis. SACRUM: Intact. OTHER: No other findings. IMPRESSION: For the purposes of enumeration the 12th ribs are consider hypoplastic and there is a tr ansitional L5 segment at the lumbosacral junction. At L1-L2 there is a left paramedian disc protrusion with cephalad migration that exerts mass effect u jose the intraforaminal left L1 nerve root and left intrathecal L2 nerve root in the lateral recess. At L4-L5 there is moderate compression of the thecal sac and mild bilateral foraminal stenosis. TECHNICAL DOCUMENTATION: JOB ID: [id number] 2010 [employer]- All Rights Reserved Reading location - IP/workstation name: [email or web address]
== END ==
LOC: RAD 11:55
PROVIDERS: ATTEND Internal Medicine
DX: M51.16 Intervertebral disc disorders with radiculopathy, lumbar region (principal); M47.897 Other spondylosis, lumbosacral region
CPT/HCPCS: 72148

== ENCOUNTER → 2020-07-03 | Outpatient (CLI) | payer MEDICARE ==
--- NOTE | 2020-07-03 13:21 | WOMENS IMAGING REPORT ---
EXAM DESCRIPTION: 3D SCREENING MAMMO BILAT IMAGES COMPLETED DATE/TIME: 07/03/2020 10:46 am REASON FOR STUDY: ROUTINE BILATERAL SCREENING;Z12.31 Z12.31 ENCNTR SCREEN MAMMOGRAM FOR MALIGNANT N EOPLASM OF SHIMA COMPARISON: 12/26/2018, 09/02/2014, 11/15/2012 EXAM PARAMETERS: Views: Standard craniocaudal and mediolateral oblique views of each breast recorded using digital acquisition and breast tomosynthesis. Read with the assistance of CAD. .[facility] - [employer] Version 9.2 LIMITATIONS: None. FINDINGS: No suspicious masses, suspicious calcifications or architectural distortion. No areas of c oncern. IMPRESSION: NEGATIVE MAMMOGRAM. BIRADS 1. BREAST DENSITY: b. There are scattered areas of fibroglandular density. BIRAD: ASSESSMENT: 1 NEGATIVE RECOMMENDATION: ROUTINE SCREENING COMMENT: The patient has been notified of the results by letter per MQSA requirements. Additional no tification policies are in place for contacting patient with suspicious or incomplete findings. Quality ID #[id number]: The [employer] recommends an annual screening mammogram for women aged 40 years or over. This facility utilizes a reminder system to ensure that all patients receive reminder letters, and/or direct phone calls for appointments. This includes reminders for routine scr eening mammograms, diagnostic mammograms, or other Breast Imaging Interventions when appropriate. Th is patient will be placed in the appropriate reminder system. TECHNICAL DOCUMENTATION: FINDING NUMBER: (1) ASSESSMENT: (1) JOB ID: [id number] 2010 [employer]- All Rights Reserved Reading location - IP/workstation name: [email or web address]
== END ==
LOC: WI 09:49
PROVIDERS: ATTEND Internal Medicine
DX: Z12.31 Encounter for screening mammogram for malignant neoplasm of breast (principal)
CPT/HCPCS: 77063; 77067